=== PATIENT | male | born 2005 | race Two or more races ===

== ENCOUNTER 2023-02-15 15:53 | Emergency (ER) | payer MEDICAID, OTHER ==
[~2023-02-15] VITALS: Ht 162.6 cm; Wt 53.4 kg
[2023-02-15 16:18] VITALS: BP 122/67; PULSE 83; RESP 18; TEMP 97.2; O2SAT 99
[2023-02-15] MEDS ORDERED: IBUP-1454 PO (16:51)
[2023-02-15] MEDS ORDERED: ACETAMINOPHEN 500 MG TAB PO ONE (17:00)
== END 2023-02-15 16:58 | disposition home or self-care (01) ==
LOC: ER 15:53
DX: S93.601A Unspecified sprain of right foot, initial encounter (principal); Z79.1 Long term (current) use of non-steroidal anti-inflammatories (NSAID); W11.XXXA Fall on and from ladder, initial encounter; Y93.89 Activity, other specified; Y92.89 Other specified places as the place of occurrence of the external cause; Y99.8 Other external cause status
CPT/HCPCS: 73630

== ENCOUNTER 2023-06-23 15:00 | Emergency (ER) | payer OTHER ==
[~2023-06-23] VITALS: Ht 160 cm; Wt 51.4 kg
[~2023-06-23 15:00] MED LIST: IBUP-1454 PO
[2023-06-23 15:22] VITALS: BP 121/70; PULSE 110; RESP 15; O2SAT 100
== END 2023-06-23 15:11 | disposition left against medical advice (07) ==
LOC: ER 15:00
DX: M79.18 Myalgia, other site (principal); J02.9 Acute pharyngitis, unspecified; R50.9 Fever, unspecified; Z53.21 Procedure and treatment not carried out due to patient leaving prior to being seen by health care provider